=== PATIENT | female | born 1940 | race Caucasian/White ===

== ENCOUNTER → 2018-01-18 | Outpatient (CLI) | payer MEDICARE ==
--- NOTE | 2018-01-18 14:24 | CT ---
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 Automated Exposure Control for Dose Reduction was Utilized. CONTRAST: CTA scan of the thorax is performed without and with IV Contrast, patient injected with 100 ml mL of Omnipaque 350, pulmonary embolism protocol. MIP Images are created on CT scanner and reviewed. FINDINGS: LUNGS: The lungs are grossly clear, there is no concerning parenchymal mass or nodule identified. T here is no pleural effusion or pneumothorax seen. The tracheobronchial tree is patent. Scattered ble bs are noted throughout the lungs in this patient with mild centrilobular emphysematous change. MEDIASTINUM: When measured on coronal images series 11 image 11 the ascending thoracic aorta demonstr ates minimal dilatation measuring 4.1 cm, similar to the prior exam where this was approximate measur e 4.2 cm. The pulmonary arteries within normal limits measuring 2.9 cm. Aortic root is also within no rmal limits measuring 3.7 cm. There is no evidence of thoracic aortic dissection. The heart is not en larged. There is a conventional branch pattern of the great vessels from the aortic arch. There is sa tisfactory enhancement of the pulmonary artery and its branches, there is no CT evidence for pulmonar y embolism. There are no greater than 1 cm hilar or mediastinal lymph nodes. No cardiomegaly or pe ricardial effusion is seen. OTHER: Subtle fat stranding is noted around the gallbladder fundus. This could be related to volume a veraging and is seen on the most inferior image only. Small fat containing diaphragmatic hernia is ag ain seen on the left. IMPRESSION: 1. Stability of the mildly dilated ascending thoracic aortic aneurysm measuring 4.1 cm. No evidence o f descending thoracic aortic aneurysm or dissection. 2. Fat stranding around the gallbladder and a single image only. Correlation with serum laboratory va lues and right upper quadrant pain is recommended to determine the need for right upper quadrant ultr asound and/or HIDA scan.
== END | disposition home or self-care (01) ==
LOC: RADCTMAIN 13:08
PROVIDERS: ATTEND Internal Medicine
DX: I71.2 Thoracic aortic aneurysm, without rupture (principal)
CPT/HCPCS: 71275; Q9967

== ENCOUNTER 2018-02-22 12:07 | Emergency (ER) | payer MEDICARE ==
[2018-02-22] MEDS ORDERED: RX INFO: IV CONTRAST WAS GIVEN 1 EACH MISC MISCELLANE PRN (12:21)
--- NOTE | 2018-02-22 12:40 | ED ---
Chest Pain HPI - General Chief Complaint: Chest Pain Stated Complaint: CHEST PAIN Time Seen by Provider: 02/22/18 12:12 Source: patient, RN notes reviewed Mode of arrival: wheelchair Limitations: no limitations - History of Present Illness Initial Comments: This is a 77-year-old female who was sent from her physician's office after she presented with complaints of chest pain it starts anteriorly and radiates to her back. She states this started yesterday she states she's been coughing a lot with clear phlegm no fevers chills or sweats she states the pain was stabbing in nature 04/08 severity pain in the back is increased with deep breathing. 2. He did have a CAT scan on January 21 of this year. No other symptoms reported at this time. Concern is for aortic pathology. MD Complaint: chest pain - Related Data Home Medications Medication Instructions Recorded Confirmed Lisinopril [Prinivil] 5 mg PO DAILY 10/05/15 02/22/18 Apixaban [Eliquis] 2.5 mg PO BID 07/15/16 02/22/18 ALPRAZolam [Xanax] 0.25 mg PO HS PRN 02/22/18 02/22/18 Atorvastatin [Lipitor] 10 mg PO DAILY 02/22/18 02/22/18 Lisinopril [Zestril] 5 mg PO DAILY 02/22/18 02/22/18 Metoprolol Succinate (ER) [Toprol 12.5 mg PO DAILY 02/22/18 02/22/18 Xl] Omeprazole [PriLOSEC] 20 mg PO DAILY 02/22/18 02/22/18 Previous Rx's Medication Instructions Recorded traMADol HCL [Ultram] 50 mg PO Q6HR PRN #12 tab 02/22/18 Allergies Allergy/AdvReac Type Severity Reaction Status Date / Time Sulfa (Sulfonamide Allergy Unknown Verified 02/22/18 12:28 Antibiotics) Review of Systems ROS Statement: Those systems with pertinent positive or pertinent negative responses have been documented in the HPI. ROS Other: All systems not noted in ROS Statement are negative. EKG Findings - EKG Results: EKG: interpreted by ERMD (Sinus bradycardia rate of 53. Interval 170 QRS duration 82 QT since QTC 424/397 evidence a left exodeviation nonspecific T- wave configuration.) Past Medical History Past Medical History: Hypertension, Mitral Valve Prolapse (MVP) History of Any Multi-Drug Resistant Organisms: None Reported Past Surgical History: No Surgical Hx Reported Past Psychological History: No Psychological Hx Reported Smoking Status: Former smoker Past Alcohol Use History: None Reported Past Drug Use History: None Reported General Exam - General Exam Comments Initial Comments: This is a well-developed well-nourished awake alert oriented 3 female Limitations: no limitations General appearance: alert, in no apparent distress Head exam: Present: atraumatic, normocephalic, normal inspection Eye exam: Present: normal appearance, PERRL, EOMI. Absent: scleral icterus, conjunctival injection, periorbital swelling ENT exam: Present: normal exam, mucous membranes moist Neck exam: Present: normal inspection. Absent: tenderness, meningismus, lymphadenopathy Respiratory exam: Present: normal lung sounds bilaterally. Absent: respiratory distress, wheezes, rales, rhonchi, stridor Cardiovascular Exam: Present: regular rate, normal rhythm, normal heart sounds. Absent: systolic murmur, diastolic murmur, rubs, gallop, clicks GI/Abdominal exam: Present: soft, normal bowel sounds. Absent: distended, tenderness, guarding, rebound, rigid Extremities exam: Present: normal inspection, full ROM, normal capillary refill. Absent: tenderness, pedal edema, joint swelling, calf tenderness Back exam: Present: normal inspection, full ROM, other (Mild kyphosis is noted.) . Absent: tenderness, CVA tenderness (R), CVA tenderness (L) Neurological exam: Present: alert, oriented X3, CN II-XII intact Psychiatric exam: Present: normal affect, normal mood Skin exam: Present: warm, dry, intact, normal color. Absent: rash Course Vital Signs 02/22/18 02/22/18 12:09 14:10 Temperature 98.0 F 98.2 F Pulse Rate 55 L 54 L Respiratory 20 20 Rate Blood Pressure 163/89 166/99 O2 Sat by Pulse 98 100 Oximetry Chest Pain MDM - MDM I did review the imaging and the CAT scan with angiography shows a 2 mm increase in size the aorta. Her previous one I did discuss the findings with Dr. Correa patient be discharged I will write a prescription for tramadol for her she is follow-up with Dr. Correa and return when necessary Disposition Clinical Impression: Atypical chest pain Disposition: HOME SELF-CARE Condition: Good Instructions: Chest Wall Pain (ED) Prescriptions: traMADol HCL [Ultram] 50 mg PO Q6HR PRN #12 tab PRN Reason: Pain Is patient prescribed a controlled substance at d/c from ED?: Yes If prescribed controlled substance>3 days was MAPS reviewed?: No When asked, does pt state using other controlled substances?: Yes Referrals: Abelardo Correa MD [Primary Care Provider] - 1-2 days
[2018-02-22 13:08] LABS: Basophils % (A) 1 %; Eosinophils # (A) 0.1 k/uL (0-0.7); Eosinophils % (A) 2 %; HCT 39.6 % (34.0-46.0); HGB 13.6 gm/dL (11.4-16.0); Lymphocytes % (A) 21 %; MCHC 34.3 g/dL (31.0-37.0); MCV 93.5 fL (80.0-100.0); Mean Platelet Volume 6.4; Monocytes # (A) 0.3 k/uL (0-1.0); Monocytes % (A) 7 %; Neutrophils # (A) 3.2 k/uL (1.3-7.7); Neutrophils % (A) 66 %; Platelet Count 264 k/uL (150-450); RBC 4.24 m/uL (3.80-5.40); RDW 12.8 % (11.5-15.5); WBC 4.8 k/uL (3.8-10.6)
--- NOTE | 2018-02-22 13:18 | XR ---
EXAMINATION TYPE: XR chest 2V DATE OF EXAM: 02/22/2018 COMPARISON: 10/05/2015 INDICATION: Cough, chest pain TECHNIQUE: Frontal and lateral views of the chest are obtained. FINDINGS: The heart size is normal. The pulmonary vasculature is normal. The lungs are clear. Mild hyperinflation may be present. Axillary adenopathy is not excluded. Clinic al correlation is recommended IMPRESSION: 1. No acute pulmonary process. 2. Axillary adenopathy is not excluded, more so on the left. Clinical correlation recommended.
[2018-02-22 13:23] LABS: Partial Thromboplastin Time 25.2 sec (22.0-30.0); Prothrombin Time 10.1 sec (9.0-12.0)
[2018-02-22 13:26] LABS: Albumin 4.5 g/dL (3.5-5.0); Calcium 9.3 mg/dL (8.4-10.2); Magnesium 2.1 mg/dL (1.6-2.3); Potassium 4.4 mmol/L (3.5-5.1); Total Protein 7.2 g/dL (6.3-8.2)
[2018-02-22 13:34] LABS: Creatine Kinase 63 U/L (30-135)
[2018-02-22 13:45] LABS: Creatine Kinase MB <0.2 ng/mL (0.0-2.4); Troponin I <0.012 ng/mL (0.000-0.034)
--- NOTE | 2018-02-22 14:37 | CT ---
EXAMINATION TYPE: CT angio thoracic/abd aorta DATE OF EXAM: 02/22/2018 COMPARISON: 07/15/2016 HISTORY: Back pain CT DLP: 726.2 mGycm, Automated exposure control for dose reduction was used. CONTRAST: Performed injected with 100 mL of Isovue 370. TECHNIQUE: Axial images were obtained at 5 mm thick sections. Reconstructed images are reviewed on t [email or web address] computer in the coronal plane. FINDINGS: Thyroid is enlarged heterogenous. No suspicious lung nodules or focal infiltrates are present. No enlarged mediastinal or hilar adenopathy is evident. The ascending aorta diameter at the level o f the main pulmonary artery is 4.2 cm. The main pulmonary artery diameter at the bifurcation is 3.0 cm. 3-D [id number] reconstructed images were obtained separately on the vitreous computer. Aorta tape rs normally throughout its visualized course. No dissection is evident. No aneurysm is evident. Commo n iliac arteries dividing into internal and external iliac arteries. The external iliac arteries exte nding the common femoral arteries which bifurcate normally. The abdomen is visualized appears unremarkable. Fecal debris is within the colon. There is limitation on loops of bowel lacking oral contrast. Uterus and ovaries are not identified. The appendix is not identified. IMPRESSIONS: 1. Ascending thoracic aortic aneurysm of 4.2 cm. This is slightly larger than the 4 cm from 2016. 2. Enlarged heterogenous thyroid follow-up is recommended.
[2018-02-22 15:18] VITALS: BP 162/69; PULSE 47; RESP 18; TEMP 98.4
== END 2018-02-22 15:30 | disposition home or self-care (01) ==
LOC: EC 12:07
DX: R07.89 Other chest pain (principal); M40.209 Unspecified kyphosis, site unspecified; R05 Cough; Z87.891 Personal history of nicotine dependence; Z88.2 Allergy status to sulfonamides; I10 Essential (primary) hypertension; Z79.01 Long term (current) use of anticoagulants; Z79.899 Other long term (current) drug therapy
CPT/HCPCS: 99285; 36415; 93005; 80053; 82550; 82553; 83690; 83735; 84484; 85025; 85610; 85730; 71046; 75635; 71275; Q9967; 96372; 99284

== ENCOUNTER → 2019-01-10 | Outpatient (CLI) | payer MEDICARE ==
[2019-01-10 15:12] LABS: HCT 39.6 % (34.0-46.0); HGB 12.3 gm/dL (11.4-16.0); MCH 30.2 pg (25.0-35.0); MCV 97.6 fL (80.0-100.0); Mean Platelet Volume 7.1; Platelet Count 255 k/uL (150-450); RBC 4.06 m/uL (3.80-5.40); WBC 5.7 k/uL (3.8-10.6)
[2019-01-10 15:25] LABS: Potassium 4.7 mmol/L (3.5-5.1)
== END ==
LOC: LABWHC1 14:28
PROVIDERS: ATTEND Internal Medicine Interventional Cardiology
DX: Z01.812 Encounter for preprocedural laboratory examination (principal); R07.9 Chest pain, unspecified
CPT/HCPCS: 80051; 82565; 84520; 85027

== ENCOUNTER → 2019-02-09 | Outpatient (CLI) | payer MEDICARE ==
[2019-02-09 09:37] LABS: HCT 40.6 % (34.0-46.0); HGB 12.6 gm/dL (11.4-16.0); MCH 30.5 pg (25.0-35.0); MCHC 31.1 g/dL (31.0-37.0); MCV 97.9 fL (80.0-100.0); Mean Platelet Volume 6.6; Platelet Count 315 k/uL (150-450); RBC 4.15 m/uL (3.80-5.40); RDW 12.7 % (11.5-15.5); WBC 5.2 k/uL (3.8-10.6)
[2019-02-09 09:50] LABS: Potassium 4.8 mmol/L (3.5-5.1)
== END | disposition home or self-care (01) ==
LOC: LABPAT 08:52
PROVIDERS: ATTEND Internal Medicine Interventional Cardiology
DX: Z01.812 Encounter for preprocedural laboratory examination (principal); R07.9 Chest pain, unspecified; I10 Essential (primary) hypertension; E78.1 Pure hyperglyceridemia
CPT/HCPCS: 36415; 80051; 82565; 84520; 85027

== ENCOUNTER 2019-02-25 10:47 | Day surgery (SDC) | payer MEDICARE ==
[~2019-02-25 10:47] MED LIST: ALPRAZolam 0.25 MG TAB PO PRN; ALPRAZolam 0.5 MG TAB PO PRN; ASPIRIN 325 MG TAB PO STA; ATORVASTATIN 80 MG TAB PO STA; NITROGLYCERIN SL TABS 0.4 MG TAB SUBLINGUAL PRN; SODIUM CHLORIDE 0.9% 1,000 ML in EMPTY BAG 1 BAG IV ONE
[2019-02-25 11:13] VITALS: RESP 18
[2019-02-25] MEDS ORDERED: LIDOCAINE 1% INJ 10MG/ML (20 ML MDV) ONE (12:19)
[2019-02-25] MEDS ORDERED: MIDAZOLAM (PF) 2 MG/2 ML VIAL IVP ONE (12:27)
[2019-02-25] MEDS ORDERED: LIDOCAINE 1% INJ 10MG/ML (20 ML MDV) SQ ONE (12:29)
[2019-02-25] MEDS ORDERED: IOPAMIDOL-370 125ML BTL INJ ONE (12:41)
[2019-02-25] MEDS ORDERED: IOPAMIDOL-370 50ML BTL INJ ONE (12:41)
[2019-02-25] MEDS ORDERED: RX INFO: IV CONTRAST WAS GIVEN 1 EACH MISC MISCELLANE PRN (12:46)
[2019-02-25] MEDS ORDERED: SODIUM CHLORIDE 0.9% 1,000 ML IV SCH (13:00)
--- NOTE | 2019-02-25 13:05 | CC ---
CARDIAC CATHETERIZATION REPORT DATE OF SERVICE: 02/25/2019 PERFORMING PHYSICIAN: Chris Brown MD, Stitcher Feeder. PROCEDURE PERFORMED: 1. Selective right and left coronary angiogram. 2. An aortic root angiogram. 3. Left heart catheterization. INDICATION: This is a pleasant 79-year-old female patient with past medical history significant for paroxysmal atrial fibrillation as well as aortic insufficiency, who continues to have chest discomfort. Because of that, a heart catheterization was advised. APPROACH: Right common femoral artery. COMPLICATION: None. LEVEL OF SEDATION: Moderate with sedation length of 17 minutes. PROCEDURE DESCRIPTION: After obtaining an informed consent, the patient was brought to the cardiac laborer landscape. The right common femoral artery was cannulated using micropuncture technique and a micropuncture wire passed easily. then I placed a 6-Lao sheath in the right common femoral artery. After that, I did selective right and left coronary angiogram using JR 3.5 and JL3.5 catheters. Left heart catheterization was performed using 6-Lao pigtail catheter. The aortic root angiogram was performed also using the 6-Lao pigtail catheter. The procedure was completed without any complication. SELECTIVE CORONARY ANGIOGRAM: 1. The right coronary artery is a large caliber vessel and it is a dominant vessel. It appears to be angiographically normal. 2. The left main is angiographically normal, it bifurcates into the circumflex and left anterior descending artery. 3. The left circumflex is a large caliber vessel. It is a nondominant vessel and appeared to be angiographically normal. 4. The LAD, the LAD is angiographically normal. In the midportion it gives rise into a large diagonal branch which seems to be normal. HEMODYNAMICS: The left ventricular end diastolic was 20 mmHg without significant gradient across the aortic valve. AORTIC ROOT ANGIOGRAM: The aortic root angiogram was performed in the MOZAMBICAN projection and using a power injection. The aortic root appeared to be mildly dilated with evidence of 1 to 2+ AI. CONCLUSION: 1. Normal coronary angiogram. 2. Mildly dilated aortic root. 3. One to 2+ AI. POSTPROCEDURE MANAGEMENT: Medical treatment and follow up with the patient. MMODL / IJN: [id number] /
--- NOTE | 2019-02-25 13:05 | LTR ---
DATE OF SERVICE: 02/25/2019 RE: Annetta Riddle Dear Dr. Correa; Ms. Annetta Riddle underwent today a heart catheterization and that revealed normal coronaries. I want to thank you for allowing us to participate in her care and please do not hesitate to call for questions or concerns. Sincerely, MD SYED Salcido / MALOU: [phone] /
[2019-02-25] MEDS ORDERED: ACETAMINOPHEN TAB 325 MG TAB ONE (16:26)
[2019-02-25] MEDS ORDERED: ACETAMINOPHEN TAB 325 MG TAB PO PRN (16:28)
[2019-02-25] MEDS: LISINOPRIL 2.5 MG TAB PO STA ×2 (16:51→16:54)
[2019-02-25 18:14] VITALS: BMI 21.2
[2019-02-25 19:52] VITALS: BP 122/65; PULSE 51; TEMP 98.5
== END 2019-02-25 20:35 | disposition home or self-care (01) ==
LOC: CATHCVL 10:47 → 3SCARD 16:01 → CATHCVL 20:35
PROVIDERS: ATTEND Internal Medicine Interventional Cardiology
DX: I48.0 Paroxysmal atrial fibrillation (principal); R07.89 Other chest pain; I10 Essential (primary) hypertension; I35.1 Nonrheumatic aortic (valve) insufficiency; E78.00 Pure hypercholesterolemia, unspecified; Z72.0 Tobacco use; Z79.01 Long term (current) use of anticoagulants; Z79.899 Other long term (current) drug therapy
CPT/HCPCS: 93458; 93567; C1894; C1769; J2001; Q9967 ×2; J2250

== ENCOUNTER → 2021-04-26 | Outpatient (CLI) | payer MEDICARE ==
--- NOTE | 2021-04-26 17:23 | XR ---
EXAMINATION TYPE: XR ankle complete 3 views LT, XR foot complete 3 views LT DATE OF EXAM: 04/26/2021 COMPARISON: NONE HISTORY: 81-year-old female M2 5.572, pain and swelling. FINDINGS: Ankle: Prominent circumferential soft tissue swelling at the ankle. Ankle mortise is congruent with preserva tion of the distal tibiofibular overlap. Talar dome is intact. No acute fracture, subluxation, or dis location seen. Subtalar joint is aligned. Mild degenerative spurring anterior tibiotalar joint. Foot: Mild degenerative change first MTP joint. Generalized dorsal soft tissue swelling. Os intermetatarsal noted along the dorsal midfoot. No acute fracture, subluxation, dislocation seen. IMPRESSION: Ankle and foot with prominent generalized soft tissue swelling. Mild degenerative spurring at the tib iotalar joint and also mild first MTP joint OA. No acute osseous abnormality seen.
== END | disposition home or self-care (01) ==
LOC: RADXRMAIN 15:06
PROVIDERS: ATTEND Family Medicine
DX: M19.072 Primary osteoarthritis, left ankle and foot (principal)

== ENCOUNTER 2021-11-18 17:16 | Inpatient (IN) | payer MEDICARE ==
[2021-11-18] MEDS ORDERED: DILTIAZEM DRIP BOLUS FROM BAG 1 MG SOLN IV ONE ×2 (17:42→19:02)
--- NOTE | 2021-11-18 17:42 | ED ---
General Adult HPI - General Chief complaint: Arrhythmia/Palpitations Stated complaint: High HR Time Seen by Provider: 11/18/21 17:22 Source: patient, RN/ (Call received from Dr. Gill), RN notes reviewed Mode of arrival: ambulatory Limitations: no limitations - History of Present Illness Initial comments: Patient is a pleasant 81-year-old female presenting to the emergency department for tachycardia. Patient does have a history of atrial fibrillation and is on oral Eliquis for this. Patient was at her doctor's office for routine visit and found heart rate up in the 130s. Patient states just recently she felt some palpitations otherwise has not been. No chest pain. No dyspnea. - Related Data Home Medications Medication Instructions Recorded Confirmed ALPRAZolam [Xanax] 0.25 mg PO HS PRN 02/22/18 02/22/19 Atorvastatin [Lipitor] 10 mg PO DAILY 02/22/18 02/25/19 Metoprolol Succinate (ER) [Toprol 12.5 mg PO DAILY 02/22/18 02/25/19 XL] ALPRAZolam [Xanax] 0.25 mg PO HS PRN 02/22/19 02/25/19 Biotin 10,000 mcg PO DAILY 02/22/19 02/25/19 Cetirizine HCl [Zyrtec] 10 mg PO DAILY 02/22/19 02/25/19 Focus Factor Supplement 1 tab PO DAILY 02/22/19 02/25/19 Neuro-Ps Supplement 1 tab PO DAILY 02/22/19 02/25/19 Vitamin B Complex 1 each PO DAILY 02/22/19 02/25/19 lisinopriL [Zestril] 2.5 mg PO DAILY 02/22/19 02/25/19 Allergies Allergy/AdvReac Type Severity Reaction Status Date / Time Sulfa (Sulfonamide Allergy Unknown Verified 11/18/21 17:30 Antibiotics) Review of Systems ROS Statement: Those systems with pertinent positive or pertinent negative responses have been documented in the HPI. ROS Other: All systems not noted in ROS Statement are negative. Constitutional: Denies: fever Eyes: Denies: eye pain ENT: Denies: ear pain Respiratory: Denies: cough, dyspnea Cardiovascular: Reports: palpitations. Denies: chest pain Endocrine: Denies: fatigue Gastrointestinal: Denies: abdominal pain Genitourinary: Denies: dysuria Musculoskeletal: Denies: back pain Skin: Denies: rash Neurological: Denies: weakness Past Medical History Past Medical History: Hypertension, Mitral Valve Prolapse (MVP) History of Any Multi-Drug Resistant Organisms: None Reported Past Surgical History: No Surgical Hx Reported Past Psychological History: No Psychological Hx Reported Smoking Status: Never smoker Past Alcohol Use History: None Reported Past Drug Use History: None Reported General Exam Limitations: no limitations General appearance: alert, in no apparent distress Head exam: Present: normocephalic Eye exam: Present: normal appearance Neck exam: Present: normal inspection Respiratory exam: Present: normal lung sounds bilaterally Cardiovascular Exam: Present: tachycardia Expanded Peripheral pulses: 2+: Radial (R), Radial (L), Posterior Tibialis (R), Posterior Tibialis (L) GI/Abdominal exam: Present: soft. Absent: tenderness Extremities exam: Present: normal inspection. Absent: pedal edema, calf tenderness Neurological exam: Present: alert Psychiatric exam: Present: normal affect, normal mood Skin exam: Present: normal color Course Vital Signs 11/18/21 11/18/21 11/18/21 17:28 17:52 17:55 Temperature 98.1 F Pulse Rate 146 H 146 H Pulse Rate [ 148 H Ibm Bpm Architect ] Respiratory 20 18 Rate Blood Pressure 173/108 144/109 O2 Sat by Pulse 98 97 Oximetry 11/18/21 17:57 Temperature Pulse Rate 144 H Pulse Rate [ Ibm Bpm Architect ] Respiratory 18 Rate Blood Pressure 146/96 O2 Sat by Pulse 96 Oximetry EKG Findings - EKG Comments: EKG Findings:: A. fib with RVR, rate 138. QRS 76. QT 216. QTc 470. Normal axis. Poor R-wave progression. Nonspecific ST-T. Medical Decision Making - Medical Decision Making Patient reevaluated with heart rate remaining mostly in the upper 130s to 140. Additional Cardizem will be provided. Patient and family updated. Case was discussed with Dr. Mcnair, who will admit covering for Dr. Candelario. - Lab Data Result diagrams: 11/18/21 17:54 11/18/21 17:54 Lab Results 11/18/21 11/18/21 11/18/21 Range/Units 17:54 17:54 17:54 WBC 6.4 (3.8-10.6) k/uL RBC 4.40 (3.80-5.40) m/uL Hgb 14.3 (11.4-16.0) gm/dL Hct 43.8 (34.0-46.0) % MCV 99.4 (80.0-100.0) fL MCH 32.4 (25.0-35.0) pg MCHC 32.6 (31.0-37.0) g/dL RDW 13.2 (11.5-15.5) % Plt Count 262 (150-450) k/uL MPV 7.4 Neutrophils % 62 % Lymphocytes % 27 % Monocytes % 6 % Eosinophils % 2 % Basophils % 0 % Neutrophils # 3.9 (1.3-7.7) k/uL Lymphocytes # 1.7 (1.0-4.8) k/uL Monocytes # 0.4 (0-1.0) k/uL Eosinophils # 0.2 (0-0.7) k/uL Basophils # 0.0 (0-0.2) k/uL PT 10.2 (9.0-12.0) sec INR 0.9 (<1.2) APTT 23.1 (22.0-30.0) sec Sodium 141 (137-145) mmol/L Potassium 4.2 (3.5-5.1) mmol/L Chloride 105 (98-107) mmol/L Carbon Dioxide 24 (22-30) mmol/L Anion Gap 12 mmol/L BUN 22 H (7-17) mg/dL Creatinine 1.07 H (0.52-1.04) mg/dL Est GFR (CKD-EPI)AfAm 56 (>60 ml/min/1.73 sqM) Est GFR (CKD-EPI)NonAf 49 (>60 ml/min/1.73 sqM) Glucose 108 H (74-99) mg/dL Calcium 9.7 (8.4-10.2) mg/dL Magnesium 2.1 (1.6-2.3) mg/dL Total Bilirubin 1.5 H (0.2-1.3) mg/dL AST 29 (14-36) U/L ALT 16 (4-34) U/L Alkaline Phosphatase 84 (38-126) U/L Troponin I (0.000-0.034) ng/mL Total Protein 8.2 (6.3-8.2) g/dL Albumin 4.8 (3.5-5.0) g/dL TSH 4.690 H (0.465-4.680) mIU/L Free T4 1.22 (0.78-2.19) ng/dL Free T3 pg/mL 3.9 (2.8-5.3) pg/ml 11/18/21 Range/Units 17:54 WBC (3.8-10.6) k/uL RBC (3.80-5.40) m/uL Hgb (11.4-16.0) gm/dL Hct (34.0-46.0) % MCV (80.0-100.0) fL MCH (25.0-35.0) pg MCHC (31.0-37.0) g/dL RDW (11.5-15.5) % Plt Count (150-450) k/uL MPV Neutrophils % % Lymphocytes % % Monocytes % % Eosinophils % % Basophils % % Neutrophils # (1.3-7.7) k/uL Lymphocytes # (1.0-4.8) k/uL Monocytes # (0-1.0) k/uL Eosinophils # (0-0.7) k/uL Basophils # (0-0.2) k/uL PT (9.0-12.0) sec INR (<1.2) APTT (22.0-30.0) sec Sodium (137-145) mmol/L Potassium (3.5-5.1) mmol/L Chloride (98-107) mmol/L Carbon Dioxide (22-30) mmol/L Anion Gap mmol/L BUN (7-17) mg/dL Creatinine (0.52-1.04) mg/dL Est GFR (CKD-EPI)AfAm (>60 ml/min/1.73 sqM) Est GFR (CKD-EPI)NonAf (>60 ml/min/1.73 sqM) Glucose (74-99) mg/dL Calcium (8.4-10.2) mg/dL Magnesium (1.6-2.3) mg/dL Total Bilirubin (0.2-1.3) mg/dL AST (14-36) U/L ALT (4-34) U/L Alkaline Phosphatase (38-126) U/L Troponin I <0.012 (0.000-0.034) ng/mL Total Protein (6.3-8.2) g/dL Albumin (3.5-5.0) g/dL TSH (0.465-4.680) mIU/L Free T4 (0.78-2.19) ng/dL Free T3 pg/mL (2.8-5.3) pg/ml Critical Care Time Critical Care Time: Yes Total Critical Care Time: 32 Disposition Clinical Impression: Atrial fibrillation with RVR Disposition: ADMITTED IP TO THIS HOSP Is patient prescribed a controlled substance at d/c from ED?: No Referrals: Floyd Doyle [Primary Care Provider] - 1-2 days Decision Time: 19:03
[2021-11-18] MEDS ORDERED: DILTIAZEM 125 MG in SODIUM CHLORIDE 0.9% 100 ML IV SCH (17:45)
[2021-11-18 18:00] LABS: Basophils % (A) 0 %; Eosinophils # (A) 0.2 k/uL (0-0.7); Eosinophils % (A) 2 %; HCT 43.8 % (34.0-46.0); HGB 14.3 gm/dL (11.4-16.0); Lymphocytes # (A) 1.7 k/uL (1.0-4.8); Lymphocytes % (A) 27 %; MCH 32.4 pg (25.0-35.0); MCHC 32.6 g/dL (31.0-37.0); MCV 99.4 fL (80.0-100.0); Mean Platelet Volume 7.4; Monocytes # (A) 0.4 k/uL (0-1.0); Monocytes % (A) 6 %; Neutrophils # (A) 3.9 k/uL (1.3-7.7); Neutrophils % (A) 62 %; Platelet Count 262 k/uL (150-450); RDW 13.2 % (11.5-15.5); WBC 6.4 k/uL (3.8-10.6)
[2021-11-18 18:09] LABS: INR 0.9 (<1.2); Partial Thromboplastin Time 23.1 sec (22.0-30.0); Prothrombin Time 10.2 sec (9.0-12.0)
[2021-11-18 18:12] LABS: Albumin 4.8 g/dL (3.5-5.0); Calcium 9.7 mg/dL (8.4-10.2); Magnesium 2.1 mg/dL (1.6-2.3); Potassium 4.2 mmol/L (3.5-5.1); Total Bilirubin 1.5 mg/dL (0.2-1.3); Total Protein 8.2 g/dL (6.3-8.2)
--- NOTE | 2021-11-18 18:19 | XR ---
EXAMINATION TYPE: XR chest 2V DATE OF EXAM: 11/18/2021 6:09 PM COMPARISON:Multiple radiographs, with the most recent on 02/22/2018 CLINICAL INDICATION:Female, 81 years old with history of dysrhythmia; TECHNIQUE: Frontal and lateral views of the chest. FINDINGS: Lungs/Pleura: There is flattening of the diaphragm with increased lucency of the lungs. No evidence o f pneumothorax, pleural effusion or focal consolidation. Pulmonary vascularity: Unremarkable. Heart/mediastinum: Cardiomediastinal silhouette is prominent in size. Musculoskeletal: No acute osseous pathology. IMPRESSION: 1. No acute cardiopulmonary disease/process. 2. COPD changes.
[2021-11-18 18:29] LABS: T4, Free (Free Thyroxine) 1.22 ng/dL (0.78-2.19)
[2021-11-18] MEDS ORDERED: NALOXONE 0.4 MG/ML 1 ML VIAL IV PRN (19:13)
--- NOTE | 2021-11-19 01:06 | P.HPIM ---
History of Present Illness H&P Date: 11/18/21 Patient is an 81-year-old female with a PMH of A. fib on Eliquis, hypertension, and hyperlipidemia who was sent in from her primary care physician's office due to A. fib with RVR. The history was supplemented by the patient's daughter at the bedside. The daughter reports that the patient has been more forgetful recently and they suspect that she may not be taking her medications as per usual. The patient was also partially confused during the interview and when asked, she reports that she does not take any medications. The patient lives by herself and up until now has been fully independent with all her ADLs. She was seen at her PMDs office earlier today for a routine evaluation where she was noted to be significantly tachycardic and was thereby sent to the ED. She denied any active complaints at the time of interview. The patient denied experiencing chest discomfort, shortness of palpitations, nausea, vomiting, abdominal pain, diarrhea, fever, chills, cough, dysuria. EKG in the emergency room revealed A. fib with RVR with initial EKG showing a rate of 131 and subsequently 138. Chest x-ray revealed findings consistent with COPD. Laboratory evaluation was reviewed. Review of systems: Pertinent positives and negatives as discussed in HPI, a complete review of systems was performed and all other systems are negative. Physical examination: General: non toxic, no distress, appears at stated age, normal weight Derm: no unusual rashes/lesions no unusual ecchymoses, warm, dry Head: atraumatic, normocephalic, symmetric Eyes: EOMI, no lid lag, anicteric sclera, pupils equal round reactive to light ENT: Nose and ears atraumatic, no thrush, no pharyngeal erythema Neck: No thyromegaly, no cervical lymphadenopathy, trachea midline, supple Mouth: no lip lesion, mucus membranes moist Cardiovascular: Irregularly irregular, no murmur, positive posterior tibial pulse bilateral, no edema, capillary refill less than 2 seconds Lungs: CTA bilateral, no rhonchi, no rales , no accessory muscle use Abdominal: soft, nontender to palpation, no guarding, no appreciable organomeg rylee, normal bowel sounds Ext: no gross muscle atrophy, muscle strength 5 out of 5 in all 4 extremities grossly, no contractures, Neuro: CN II-XI grossly intact, light touch intact all 4 extremities, finger to nose within normal limits, Psych: Alert, oriented to person, place, time, but somewhat confused with other questions Assessment/plan A. fib with RVR -Continue Cardizem infusion -Cardiology consulted -Cardiac monitoring -Continue with home Eliquis Chronic conditions: Hypertension, hyperlipidemia -Continue with home meds DVT prophylaxis -Eliquis The patient is admitted with an anticipated greater than 2 midnight stay for evaluation of Afib with RVR CODE STATUS: Full Code Discussed with: Patient Anticipated discharge date: 2-[address]: Home Past Medical History Past Medical History: Hypertension, Mitral Valve Prolapse (MVP) History of Any Multi-Drug Resistant Organisms: None Reported Past Surgical History: No Surgical Hx Reported Past Psychological History: No Psychological Hx Reported Smoking Status: Never smoker Past Alcohol Use History: None Reported Past Drug Use History: None Reported Medications and Allergies Home Medications Medication Instructions Recorded Confirmed Type Atorvastatin [Lipitor] 10 mg PO W/SUPPER 02/22/18 11/18/21 History Metoprolol Succinate (ER) [Toprol 12.5 mg PO DAILY 02/22/18 11/18/21 History XL] Apixaban [Eliquis] 2.5 mg PO BID 11/18/21 11/18/21 History Escitalopram [Lexapro] 10 mg PO DAILY 11/18/21 11/18/21 History Losartan Potassium [Cozaar] 25 mg PO BID 11/18/21 11/18/21 History Allergies Allergy/AdvReac Type Severity Reaction Status Date / Time Sulfa (Sulfonamide Allergy Unknown Verified 11/18/21 19:11 Antibiotics) Physical Exam Vitals: Vital Signs Temp Pulse Pulse Resp BP Pulse Ox 11/18/21 21:42 111 H 16 132/99 11/18/21 19:04 120 H 18 129/98 11/18/21 17:57 144 H 18 146/96 96 11/18/21 17:55 148 H 11/18/21 17:52 146 H 18 144/109 97 11/18/21 17:28 98.1 F 146 H 20 173/108 98 Intake and Output 11/18/21 11/18/21 11/18/21 06:59 14:59 22:59 Other: Weight 63.957 kg Results CBC & Chem 7: 11/18/21 17:54 11/18/21 17:54 Labs: Abnormal Lab Results - Last 24 Hours (Table) 11/18/21 Range/Units 17:54 BUN 22 H (7-17) mg/dL Creatinine 1.07 H (0.52-1.04) mg/dL Glucose 108 H (74-99) mg/dL Total Bilirubin 1.5 H (0.2-1.3) mg/dL TSH 4.690 H (0.465-4.680) mIU/L
[2021-11-19] MEDS: APIXABAN 2.5 MG TABLET PO SCH ×2 (08:02→20:43)
[2021-11-19] MEDS: METOPROLOL SUCCINATE (ER) 25 MG TAB.ER.24H PO SCH (08:02)
[2021-11-19] MEDS: ESCITALOPRAM 10 MG TAB PO SCH (08:02)
[2021-11-19] MEDS ORDERED: METOPROLOL SUCCINATE (ER) 25 MG TAB.ER.24H PO SCH (09:00)
[2021-11-19] MEDS ORDERED: LOSARTAN 25 MG TAB PO SCH ×2 (09:00)
[2021-11-19] MEDS ORDERED: DEXTROSE 5% IN WATER 100 ML with AMIODARONE 150 MG IV ONE (09:15)
[2021-11-19] MEDS ORDERED: AMIODARONE 360 MG in DEXTROSE 5% IN WATER 200 ML IV ONE ×2 (09:30)
--- NOTE | 2021-11-19 10:56 | ECHOF ---
Referral Reason:a fib MEASUREMENTS -------- HEIGHT: 165.1 cm WEIGHT: 63.0 kg BP: 120/75 RVIDd: 3.6 cm (< 3.3) IVSd: 1.5 cm (0.6 - 1.1) LVIDd: 3.9 cm (3.9 - 5.3) LVPWd: 1.4 cm (0.6 - 1.1) IVSs: 1.8 cm LVIDs: 2.9 cm LVPWs: 1.7 cm LA Diam: 3.9 cm (2.7 - 3.8) LAESV Index (A-L): 36.31 ml/m Ao Diam: 3.4 cm (2.0 - 3.7) AV Cusp: 2.6 cm (1.5 - 2.6) MV EXCURSION: 12.690 mm (> 18.000) MV EF SLOPE: 78 mm/s (70 - 150) EPSS: 0.7 cm AR PHT: 833 ms RAP: 5.00 mmHg RVSP: 37.80 mmHg FINDINGS -------- Atrial fibrillation. This was a technically good study. The left ventricular size is normal. There is moderate concentric left ventricular hypertrophy. O verall left ventricular systolic function is low-normal with, an EF between 50 - 55 %. The right ventricle is mildly enlarged. LA is moderately dilated 34-39 ml/m2 The right atrium is normal in size. Interatrial and interventricular septum intact. There is mild aortic regurgitation. Mild mitral regurgitation is present. Mild tricuspid regurgitation present. There is mild pulmonary hypertension. The right ventricular systolic pressure, as measured by Doppler, is 37.80mmHg. There is no pulmonic regurgitation present. The aortic root size is normal. Normal inferior vena cava with normal inspiratory collapse consistent with estimated right atrial pre ssure of 5 mmHg. There is no pericardial effusion. CONCLUSIONS -------- 1. The left ventricular size is normal. 2. There is moderate concentric left ventricular hypertrophy. 3. Overall left ventricular systolic function is low-normal with, an EF between 50 - 55 %. 4. The right ventricle is mildly enlarged. 5. LA is moderately dilated 34-39 ml/m2 6. There is mild aortic regurgitation. 7. Mild mitral regurgitation is present. 8. Mild tricuspid regurgitation present. 9. There is mild pulmonary hypertension. 10. The right ventricular systolic pressure, as measured by Doppler, is 37.80mmHg. 11. There is no pulmonic regurgitation present. 12. There is no pericardial effusion. CALL CENTER TEAM LEADER: Jazmyne Johnson RDCS
--- NOTE | 2021-11-19 12:08 | P.CRDCN ---
History of Present Illness History of present illness: This is an 81-year-old female with a past medical history of paroxysmal atrial fibrillation, hypertension, aortic regurgitation. She follows in the office with Dr. Brown. We are constant for atrial fibrillation with rapid ventricular response.Patient is confused on exam, she unsure how she got to the hospital, she is unsure of her medical history or medications. Patient was apparently sent to the hospital from her PCPs office, she was there for a routine follow up. She was noted to be significantly tachycardic. EKG revealed, atrial fibrillation which corresponds, patient was sent emergency department for further evaluation. Patient was given a 5mg IV cardizem bolus, and IV Cardizem drip. Patient seen and examined at bedside, no acute distress. She has no complaints. She denies any chest pain, palpitations, lightheadedness, dizziness, nausea, vomiting, shortness of breath. She is alert and oriented to person, she is unsure of the month, stated it was 2019 and stated she was at [facility]. DIAGNOSTICS EKG reveals atrial fibrillation with rapid ventricular response Telemetry tracings indicate atrial fibrillation heart rate in the [id number] Chest xray no acute cardiopulmonary process Laboratory reviewed, CBC unremarkable, sodium 141, potassium 4.2, BUN 22, serum creatinine 1.0, troponin negative 1, TSH elevated, free T4 and free T3 within normal limits, COVID-19 negative Current home medications include metoprolol succinate 12.5 mg daily, losartan 25 mg twice a day, Eliquis 2.5 mg twice a day, atorvastatin 10 mg daily, Lexapro 10 mg daily Cardiac catheterization in 2019 revealed normal coronary arteries Most recent echocardiogram 05/2019 revealed normal ejection fraction, moderate aortic regurgitation, moderate mitral regurgitation, LVH, mild to moderate tricuspid regurgitation Stress test in 10/2018 was normal in the office REVIEW OF SYSTEMS At the time of my exam: CONSTITUTIONAL: Denies fever or chills. CARDIOVASCULAR: Denies chest pain, shortness of breath, orthopnea, PND or palpitations. RESPIRATORY: Denies cough. GASTROINTESTINAL: Denies abdominal pain, diarrhea, constipation, nausea or vomiting. MUSCULOSKELETAL: Denies myalgias. NEUROLOGIC: Denies numbness, tingling, headacbe or weakness. ENDOCRINE: Denies fatigue, weight change, polydipsia or polyurina. GENITOURINARY: Denies burning, hematuria or urgency with micturation. HEMATOLOGIC: Denies history of anemia or bleeding. PHYSICAL EXAMINATION Blood pressure 111/77, heart rate 101, afebrile, saturations 90% on room air CONSTITUTIONAL: No apparent distress. HEENT: Head is normocephalic. Pupils are equal, round. Sclerae anicteric. Mucous membranes of the mouth are moist. No JVD. No carotid bruit. CHEST EXAMINATION: Lungs are clear to auscultation. No chest wall tenderness is noted on palpation or with deep breathing. HEART EXAMINATION: Irregular rate and rhythm. S1, S2 heard. Systolic ejection murmur at apex ABDOMEN: Soft, nontender. Positive bowel sounds. EXTREMITIES: 2+ peripheral pulses, no lower extremity edema and no calf tenderness. NEUROLOGIC EXAMINATION: Patient is awake, alert and oriented to person ASSESSMENT Paroxysmal atrial fibrillation with rapid ventricular response on Eliquis History of hypertension Nonrheumatic aortic valve insufficiency PLAN We will stop IV Cardizem. Start IV amiodarone bolus and drip, will monitor on cardiac telemetry if patient converts to sinus mechanism Continue metoprolol succinate increased to 25mg daily Obtain 2D echocardiogram Continue anticoagulation with Eliquis Further recommendations based on clinical course Nurse Practitioner note has been reviewed, I agree with a documented findings and plan of care. Patient was seen and examined. Past Medical History Past Medical History: Hypertension, Mitral Valve Prolapse (MVP) History of Any Multi-Drug Resistant Organisms: None Reported Past Surgical History: No Surgical Hx Reported Past Psychological History: No Psychological Hx Reported Smoking Status: Never smoker Past Alcohol Use History: None Reported Past Drug Use History: None Reported Medications and Allergies Home Medications Medication Instructions Recorded Confirmed Type Atorvastatin [Lipitor] 10 mg PO W/SUPPER 02/22/18 11/18/21 History Metoprolol Succinate (ER) [Toprol 12.5 mg PO DAILY 02/22/18 11/18/21 History XL] Apixaban [Eliquis] 2.5 mg PO BID 11/18/21 11/18/21 History Escitalopram [Lexapro] 10 mg PO DAILY 11/18/21 11/18/21 History Losartan Potassium [Cozaar] 25 mg PO BID 11/18/21 11/18/21 History Allergies Allergy/AdvReac Type Severity Reaction Status Date / Time Sulfa (Sulfonamide Allergy Unknown Verified 11/18/21 19:11 Antibiotics) Physical Exam Vitals: Vital Signs Temp Pulse Pulse Resp BP BP Pulse Ox 11/19/21 04:00 123 H 18 120/75 100 11/18/21 22:15 97.7 F 115 H 18 158/86 98 11/18/21 21:59 132 H 18 125/81 96 11/18/21 21:42 111 H 16 132/99 11/18/21 20:44 97.7 F 115 H 18 158/86 96 11/18/21 19:04 120 H 18 129/98 11/18/21 17:57 144 H 18 146/96 96 11/18/21 17:55 148 H 11/18/21 17:52 146 H 18 144/109 97 11/18/21 17:28 98.1 F 146 H 20 173/108 98 Intake and Output 11/18/21 11/19/21 11/19/21 22:59 06:59 14:59 Intake Total 485 485 Balance 485 485 Intake: Intake, IV Titration 485 Amount Diltiazem 125 mg In 485 Sodium Chloride 0.9% 100 ml @ 5 MG/HR 5 mls/hr IV .Q24H [facility] Rx#:[id number] Oral 485 Other: Voiding Method Toilet # Voids 1 Weight 63.957 kg 63.5 kg Results 11/18/21 17:54 11/18/21 17:54 Cardiac Enzymes 11/18/21 11/18/21 Range/Units 17:54 17:54 AST 29 (14-36) U/L Troponin I <0.012 (0.000-0.034) ng/mL Coagulation 11/18/21 Range/Units 17:54 PT 10.2 (9.0-12.0) sec APTT 23.1 (22.0-30.0) sec CBC 11/18/21 Range/Units 17:54 WBC 6.4 (3.8-10.6) k/uL RBC 4.40 (3.80-5.40) m/uL Hgb 14.3 (11.4-16.0) gm/dL Hct 43.8 (34.0-46.0) % Plt Count 262 (150-450) k/uL Comprehensive Metabolic Panel 11/18/21 Range/Units 17:54 Sodium 141 (137-145) mmol/L Potassium 4.2 (3.5-5.1) mmol/L Chloride 105 (98-107) mmol/L Carbon Dioxide 24 (22-30) mmol/L BUN 22 H (7-17) mg/dL Creatinine 1.07 H (0.52-1.04) mg/dL Glucose 108 H (74-99) mg/dL Calcium 9.7 (8.4-10.2) mg/dL AST 29 (14-36) U/L ALT 16 (4-34) U/L Alkaline Phosphatase 84 (38-126) U/L Total Protein 8.2 (6.3-8.2) g/dL Albumin 4.8 (3.5-5.0) g/dL Current Medications Generic Name Dose Route Start Last Admin Trade Name Freq PRN Reason Stop Dose Admin Apixaban 2.5 mg 11/19/21 09:00 11/19/21 08:02 Apixaban 2.5 Mg Tablet PO 2.5 mg BID [facility] Administration Protocol Atorvastatin Calcium 10 mg 11/19/21 17:30 Atorvastatin 10 Mg Tab PO W/SUPPER [facility] Escitalopram Oxalate 10 mg 11/19/21 09:00 11/19/21 08:02 Escitalopram 10 Mg Tab PO 10 mg DAILY [facility] Administration Diltiazem HCl 125 mg/ Sodium 125 mls @ 5 mls/hr 11/18/21 17:45 11/18/21 17:54 Chloride IV 5 mg/hr .Q24H [facility] 5 mls/hr Administration 5 MG/HR Losartan Potassium 25 mg 11/19/21 09:00 11/19/21 08:02 Losartan 25 Mg Tab PO 25 mg BID [facility] Administration Metoprolol Succinate 25 mg 11/19/21 08:00 11/19/21 08:02 Metoprolol Succinate (Er) 25 Mg Tab.Er.24h PO 25 mg DAILY [facility] Administration Naloxone HCl 0.2 mg 11/18/21 19:13 Naloxone 0.4 Mg/Ml 1 Ml Vial IV Q2M PRN Opioid Reversal Intake and Output 11/18/21 11/19/21 11/19/21 22:59 06:59 14:59 Intake Total 485 485 Balance 485 485 Intake: Intake, IV Titration 485 Amount Diltiazem 125 mg In 485 Sodium Chloride 0.9% 100 ml @ 5 MG/HR 5 mls/hr IV .Q24H [facility] Rx#:[id number] Oral 485 Other: Voiding Method Toilet # Voids 1 Weight 63.957 kg 63.5 kg 11/18/21 17:54 11/18/21 17:54
[2021-11-19] MEDS: ATORVASTATIN 10 MG TAB PO SCH (15:35)
[2021-11-19] MEDS: AMIODARONE 450 MG in DEXTROSE 5% IN WATER 250 ML IV SCH ×2 (16:00)
--- NOTE | 2021-11-19 17:01 | P.PN ---
<Juan C Finley - Last Filed: 11/19/21 16:54> Subjective Progress Note Date: 11/19/21 Hospital course: Patient is an 81-year-old female with a PMH of A. fib on Eliquis, hypertension, and hyperlipidemia who was sent in from her primary care physician's office due to A. fib with RVR. The history was supplemented by the patient's daughter at the bedside. The daughter reports that the patient has been more forgetful recently and they suspect that she may not be taking her medications as per usual. The patient was also partially confused during the interview and when asked, she reports that she does not take any medications. The patient lives by herself and up until now has been fully independent with all her ADLs. She was seen at her PMDs office earlier today for a routine evaluation where she was noted to be significantly tachycardic and was thereby sent to the ED. She denied any active complaints at the time of admission. EKG in the emergency room revealed A. fib with RVR with initial EKG showing a rate of 131 and subsequently 138. Chest x-ray revealed findings consistent with COPD. Laboratory evaluation was unremarkable with the exception of elevated bilirubin of 1.5 and TSH of 4.690 with free T4 of 1.22 and free T3 of 3.9. Covid PCR negative. Physical examination: Patient seen and fully evaluated at the bedside this morning. Cardizem was discontinued and patient being started on amiodarone infusion at this time. Patient states she is unsure why she was brought into the hospital as she denies recently having or currently experiencing any complaints including headache, lightheadedness, dizziness, chest pain, palpitations, shortness of breath, or experiencing any numbness/tingling/weakness in her extremities. Patient remains in A. fib with RVR at this time. General: non toxic, no distress, appears at stated age, normal weight Derm: no unusual rashes/lesions no unusual ecchymoses, warm, dry Head: atraumatic, normocephalic, symmetric Eyes: EOMI, no lid lag, anicteric sclera, pupils equal round reactive to light ENT: Nose and ears atraumatic, no thrush, no pharyngeal erythema Neck: No thyromegaly, no cervical lymphadenopathy, trachea midline, supple Mouth: no lip lesion, mucus membranes moist Cardiovascular: Irregularly irregular, no murmur, positive posterior tibial pulse bilateral, no edema, capillary refill less than 2 seconds Lungs: CTA bilateral, no rhonchi, no rales , no accessory muscle use Abdominal: soft, nontender to palpation, no guarding, no appreciable organomegaly, normal bowel sounds Ext: no gross muscle atrophy, muscle strength 5 out of 5 in all 4 extremities grossly, no contractures, Neuro: CN II-XI grossly intact, GCS 14. Other than confusion, no neuro deficits noted. Psych: Alert, oriented to person, place, time, but somewhat confused with other questions Assessment and plan of care: Atrial fibrillation with RVR -Cardizem infusion discontinued and patient started on amiodarone infusion at time of assessment. -Cardiology following -Continue telemetry monitoring -Continue anticoagulation with home Eliquis -Echocardiogram revealing EF between 50 and 55% Hypertension Monitor vital signs and continue daily medication regimen with losartan and metoprolol. Hyperlipidemia Continue daily medication regimen with atorvastatin. The patient is admitted with an anticipated greater than 2 midnight stay for evaluation of Afib with RVR CODE STATUS: Full Code DVT prophylaxis: Deepikaqucorey Discussed with: Patient and RN Anticipated discharge date: clinical course to determine Anticipated discharge place: Home Objective - Vital Signs Vital signs: Vital Signs Temp 97.7 F 11/18/21 22:15 Pulse 123 H 11/19/21 04:00 Resp 18 11/19/21 04:00 BP 120/75 11/19/21 04:00 Pulse Ox 100 11/19/21 04:00 Intake & Output 11/18/21 11/19/21 11/19/21 18:59 06:59 18:59 Intake Total 970 Balance 970 Weight 63.957 kg 63.5 kg Intake: Intake, IV Titration 485 Amount Diltiazem 125 mg In 485 Sodium Chloride 0.9% 100 ml @ 5 MG/HR 5 mls/hr IV .Q24H [facility] Rx#:[id number] Oral 485 Other: Voiding Method Toilet # Voids 1 - Labs CBC & Chem 7: 11/18/21 17:54 11/18/21 17:54 Labs: Abnormal Lab Results - Last 24 Hours (Table) 11/18/21 Range/Units 17:54 BUN 22 H (7-17) mg/dL Creatinine 1.07 H (0.52-1.04) mg/dL Glucose 108 H (74-99) mg/dL Total Bilirubin 1.5 H (0.2-1.3) mg/dL TSH 4.690 H (0.465-4.680) mIU/L <Estevan Reyes - Last Filed: 11/20/21 07:57> Subjective agree with note and plan Objective - Vital Signs Vital signs: Vital Signs Temp 98.1 F 11/19/21 20:00 Pulse 98 11/20/21 04:00 Resp 16 11/20/21 04:00 BP 120/81 11/20/21 04:00 Pulse Ox 96 11/20/21 04:00 Intake & Output 11/19/21 11/20/21 11/20/21 18:59 06:59 18:59 Intake Total 660 1203.894 Balance 660 1203.894 Intake: Intake, IV Titration 233.894 Amount Amiodarone 450 mg In 233.894 Dextrose 5% in Water 250 ml @ 0.5 MG/MIN 16.667 mls/hr IV .Q15H [facility] Rx#: [id number] Oral 660 970 Other: Voiding Method Toilet Toilet # Voids 2 1 - Labs CBC & Chem 7: 11/18/21 17:54 11/18/21 17:54
[2021-11-20] MEDS: AMIODARONE 450 MG in DEXTROSE 5% IN WATER 250 ML IV SCH ×2 (06:02)
[2021-11-20] MEDS: METOPROLOL SUCCINATE (ER) 25 MG TAB.ER.24H PO SCH (08:53)
[2021-11-20] MEDS: ESCITALOPRAM 10 MG TAB PO SCH (08:53)
[2021-11-20] MEDS: APIXABAN 2.5 MG TABLET PO SCH ×2 (08:53→20:51)
[2021-11-20] MEDS: LOSARTAN 25 MG TAB PO SCH (08:53)
--- NOTE | 2021-11-20 10:12 | P.PN ---
Subjective Progress Note Date: 11/20/21 Principal diagnosis: Persistent atrial fibrillation Patient is feeling better heart rate is well controlled denies chest pain difficulty in breathing or leg edema she is anxious to go home Echocardiogram shows normal LV function Objective - Vital Signs Vital signs: Vital Signs Temp 98.1 F 11/20/21 08:05 Pulse 80 11/20/21 08:05 Resp 16 11/20/21 08:05 BP 142/89 11/20/21 08:05 Pulse Ox 93 L 11/20/21 08:05 Intake & Output 11/19/21 11/20/21 11/20/21 18:59 06:59 18:59 Intake Total 660 1203.894 Balance 660 1203.894 Intake: Intake, IV Titration 233.894 Amount Amiodarone 450 mg In 233.894 Dextrose 5% in Water 250 ml @ 0.5 MG/MIN 16.667 mls/hr IV .Q15H [facility] Rx#: [id number] Oral 660 970 Other: Voiding Method Toilet Toilet # Voids 2 1 - Exam General: The patient is awake and alert, in no distress, and does not appear acutely ill. Skin: Skin is warm and dry and no rashes or lesions are noted. Eye: Pupils are equal, round and reactive to light, extra-ocular movements are intact; there is normal conjunctiva bilaterally. Ears, nose, mouth and throat: There are moist mucous membranes and no oral lesions. Neck: The neck is supple, there is no tenderness or JVD. Cardiovascular: Irregular No murmur, rub or gallop is appreciated. Respiratory: Lungs are clear to auscultation, respirations are non-labored, breath sounds are equal. Gastrointestinal: Soft, non-distended, non-tender abdomen without masses or organomegaly noted. There is no rebound or guarding present. Bowel sounds are unremarkable. Back: There is no tenderness to palpation in the midline. There is no obvious deformity. Musculoskeletal: Normal ROM, no tenderness, There is no pedal edema. There is no calf tenderness or swelling. Extremities: No edema. Vascular: Femoral pulse is normal. Posterior tibial pulses are normal .Dorsalis pedis is palpable. Neurological: CN II-XII intact. There are no obvious motor or sensory deficits. Speech is normal. Psychiatric: Cooperative, appropriate mood & affect, normal judgment. - Labs CBC & Chem 7: 11/18/21 17:54 11/18/21 17:54 Assessment and Plan Assessment: Persistent atrial fibrillation with poorly controlled ventricular rate Plan: Patient's heart rate is better controlled today I will switch his amiodarone to by mouth reviewed echo findings continue the anticoagulant stable for discharge from cardiac standpoint
[2021-11-20] MEDS: AMIODARONE 200 MG TAB PO SCH ×2 (10:43→20:51)
--- NOTE | 2021-11-20 13:37 | P.PN ---
<Juan C Finley - Last Filed: 11/20/21 13:32> Subjective Progress Note Date: 11/20/21 Hospital course: Patient is an 81-year-old female with a PMH of A. fib on Eliquis, hypertension, and hyperlipidemia who was sent in from her primary care physician's office due to A. fib with RVR. The history was supplemented by the patient's daughter at the bedside. The daughter reports that the patient has been more forgetful recently and they suspect that she may not be taking her medications as per usual. The patient was also partially confused during the interview and when asked, she reports that she does not take any medications. The patient lives by herself and up until now has been fully independent with all her ADLs. She was seen at her PMDs office earlier today for a routine evaluation where she was noted to be significantly tachycardic and was thereby sent to the ED. She denied any active complaints at the time of admission. EKG in the emergency room revealed A. fib with RVR with initial EKG showing a rate of 131 and subsequently 138. Chest x-ray revealed findings consistent with COPD. Laboratory evaluation was unremarkable with the exception of elevated bilirubin of 1.5 and TSH of 4.690 with free T4 of 1.22 and free T3 of 3.9. Covid PCR negative. Physical examination: Patient seen and fully evaluated at the bedside this morning. At time of assessment, patient remained on amiodarone infusion. She remains in A. fib with a controlled ventricular rate 60s to 90s. Cardiology plans to transition patient to oral amiodarone. Patient continues to deny having any headache, li ghtheadedness, dizziness, chest pain, palpitations, shortness of breath, or experiencing any numbness/tingling/weakness in her extremities. We will monitor how patient tolerates transition to oral amiodarone and plan for likely discharge in a.m. General: non toxic, no distress, appears at stated age, normal weight Derm: no unusual rashes/lesions no unusual ecchymoses, warm, dry Head: atraumatic, normocephalic, symmetric Eyes: EOMI, no lid lag, anicteric sclera, pupils equal round reactive to light ENT: Nose and ears atraumatic, no thrush, no pharyngeal erythema Neck: No thyromegaly, no cervical lymphadenopathy, trachea midline, supple Mouth: no lip lesion, mucus membranes moist Cardiovascular: Irregularly irregular, no murmur, positive posterior tibial pulse bilateral, no edema, capillary refill less than 2 seconds Lungs: CTA bilateral, no rhonchi, no rales , no accessory muscle use Abdominal: soft, nontender to palpation, no guarding, no appreciable organomegaly, normal bowel sounds Ext: no gross muscle atrophy, muscle strength 5 out of 5 in all 4 extremities grossly, no contractures, Neuro: CN II-XI grossly intact, GCS 14. Other than confusion, no neuro deficits noted. Psych: Alert, oriented to person, place, time, but somewhat confused with other questions Assessment and plan of care: Atrial fibrillation with RVR -Patient remains on amiodarone infusion at this time. Ventricular rate controlled. Cardiology placing order for oral amiodarone. We will monitor how patient tolerates transition and plan for likely discharge in a.m. -Cardiology following -Continue telemetry monitoring -Continue anticoagulation with home Eliquis -Echocardiogram revealing EF between 50 and 55% Hypertension Monitor vital signs and continue daily medication regimen with losartan and metoprolol. Hyperlipidemia Continue daily medication regimen with atorvastatin. The patient is admitted with an anticipated greater than 2 midnight stay for evaluation of Afib with RVR CODE STATUS: Full Code DVT prophylaxis: Eliquis Discussed with: Patient and RN Anticipated discharge date: Likely tomorrow morning Anticipated discharge place: Home Objective - Vital Signs Vital signs: Vital Signs Temp 98 F 11/20/21 12:17 Pulse 68 11/20/21 12:17 Resp 16 11/20/21 12:17 BP 119/69 11/20/21 12:17 Pulse Ox 94 L 11/20/21 12:17 Intake & Output 11/19/21 11/20/21 11/20/21 18:59 06:59 18:59 Intake Total 660 1203.894 180 Balance 660 1203.894 180 Weight 63 kg Intake: Intake, IV Titration 233.894 Amount Amiodarone 450 mg In 233.894 Dextrose 5% in Water 250 ml @ 0.5 MG/MIN 16.667 mls/hr IV .Q15H [facility] Rx#: [id number] Oral 660 970 180 Other: Voiding Method Toilet Toilet # Voids 2 1 1 - Labs CBC & Chem 7: 11/18/21 17:54 11/18/21 17:54 <Daija Mcnair - Last Filed: 11/20/21 18:41> Subjective Juan C Finley NP rendered care for this patient independently, reviewed the findings and plan as documented in the note above. I did not physically speak with or examine the patient on this date. Objective - Vital Signs Vital signs: Vital Signs Temp 98.4 F 11/20/21 15:44 Pulse 76 11/20/21 15:44 Resp 16 11/20/21 15:44 BP 126/80 11/20/21 15:44 Pulse Ox 95 11/20/21 15:44 Intake & Output 11/19/21 11/20/21 11/20/21 18:59 06:59 18:59 Intake Total 660 1203.894 360 Balance 660 1203.894 360 Weight 63 kg Intake: Intake, IV Titration 233.894 Amount Amiodarone 450 mg In 233.894 Dextrose 5% in Water 250 ml @ 0.5 MG/MIN 16.667 mls/hr IV .Q15H [facility] Rx#: [id number] Oral 660 970 360 Other: Voiding Method Toilet Toilet # Voids 2 1 1 # Bowel Movements 0 - Labs CBC & Chem 7: 11/18/21 17:54 11/18/21 17:54
[2021-11-20] MEDS: ATORVASTATIN 10 MG TAB PO SCH (16:57)
[2021-11-21 04:05] LABS: HCT 41.6 % (34.0-46.0); HGB 13.9 gm/dL (11.4-16.0); MCHC 33.5 g/dL (31.0-37.0); MCV 98.4 fL (80.0-100.0); Mean Platelet Volume 7.8; Platelet Count 251 k/uL (150-450); RBC 4.23 m/uL (3.80-5.40); RDW 12.8 % (11.5-15.5); WBC 7.7 k/uL (3.8-10.6)
[2021-11-21 04:16] LABS: Calcium 9.3 mg/dL (8.4-10.2); Magnesium 1.8 mg/dL (1.6-2.3); Potassium 4.6 mmol/L (3.5-5.1); Total Bilirubin 1.9 mg/dL (0.2-1.3)
[2021-11-21 05:58] VITALS: RESP 18
[2021-11-21] MEDS: METOPROLOL SUCCINATE (ER) 25 MG TAB.ER.24H PO SCH (08:14)
[2021-11-21] MEDS: AMIODARONE 200 MG TAB PO SCH (08:14)
[2021-11-21] MEDS: ESCITALOPRAM 10 MG TAB PO SCH (08:14)
[2021-11-21] MEDS: APIXABAN 2.5 MG TABLET PO SCH (08:14)
[2021-11-21] MEDS: LOSARTAN 25 MG TAB PO SCH (08:14)
[2021-11-21 09:40] VITALS: BP 115/81; PULSE 105; TEMP 98.3
--- NOTE | 2021-11-21 12:29 | P.DS ---
<Juan C Finley - Last Filed: 11/21/21 14:28> Providers Expected date of discharge: 11/21/21 Hospital Course: Discharge Diagnosis: Chronic persistent Atrial fibrillation with episode of RVR Hypertension Hyperlipidemia Hospital Course: Patient is a very pleasant 81-year-old female with a past medical history of chronic persistent atrial fibrillation on Eliquis, hypertension, and hyperlipidemia. She presented to the hospital on 11/18/21 after being sent by her primary care physician's office secondary to findings of atrial fibrillation with RVR. Upon arrival to the hospital, patient was asymptomatic and denied any complaints. EKG in the emergency room revealed A. fib with RVR with initial EKG showing a rate of 131 and subsequently 138. Chest x-ray revealed findings consistent with COPD. Laboratory evaluation was unremarkable with the exception of slightlyelevated bilirubin of 1.5 and TSH of 4.690 with free T4 of 1.22 and free T3 of 3.9. Covid PCR negative. Patient was admitted under our services for atrial fibrillation with RVR and cardiology was consulted. Initially patient was placed on Cardizem infusion and this was transitioned over to amiodarone infusion. Amiodarone infusion was able to control ventricular rate and patient was transitioned over to oral amiodarone at that time. Echocardiogram was completed revealing a preserved EF between 50 and 55%. Patient maintaining ventricular rate 70s to 110 and has been cleared by cardiology recommending follow-up in their office. Patient remains free from any complaints throughout her entire hospitalization. She is medically stable and is being discharged back home with family at this time. Patient instructed to to continue metoprolol and Eliquis and has been prescribed new medication amiodarone 200 mg twice daily. Patient to follow-up with PCP in 1-2 days and with cardiology in 1 week. Physical examination: General: non toxic, no distress, appears at stated age, normal weight Derm: no unusual rashes/lesions no unusual ecchymoses, warm, dry Head: atraumatic, normocephalic, symmetric Eyes: EOMI, no lid lag, anicteric sclera, pupils equal round reactive to light ENT: Nose and ears atraumatic, no thrush, no pharyngeal erythema Neck: No thyromegaly, no cervical lymphadenopathy, trachea midline, supple Mouth: no lip lesion, mucus membranes moist Cardiovascular: Irregularly irregular, no murmur, positive posterior tibial pulse bilateral, no edema, capillary refill less than 2 seconds Lungs: CTA bilateral, no rhonchi, no rales , no accessory muscle use Abdominal: soft, nontender to palpation, no guarding, no appreciable organomegaly, normal bowel sounds Ext: no gross muscle atrophy, muscle strength 5 out of 5 in all 4 extremities grossly, no contractures, Neuro: CN II-XI grossly intact, GCS 15. Other than confusion, no neuro deficits noted. Psych: Alert, oriented to person, place, time, and situation. A total of 45 minutes of time were spent preparing this complex discharge summary. Patient Condition at Discharge: Stable Plan - Discharge Summary Discharge Rx Participant: Yes New Discharge Prescriptions: New Amiodarone [Cordarone] 200 mg PO BID 30 Days #60 tab Continue Metoprolol Succinate (ER) [Toprol XL] 12.5 mg PO DAILY Atorvastatin [Lipitor] 10 mg PO W/SUPPER Apixaban [Eliquis] 2.5 mg PO BID Losartan Potassium [Cozaar] 25 mg PO BID Escitalopram [Lexapro] 10 mg PO DAILY Discharge Medication List Atorvastatin [Lipitor] 10 mg PO W/SUPPER 02/22/18 [History] Metoprolol Succinate (ER) [Toprol XL] 12.5 mg PO DAILY 02/22/18 [History] Apixaban [Eliquis] 2.5 mg PO BID 11/18/21 [History] Escitalopram [Lexapro] 10 mg PO DAILY 11/18/21 [History] Losartan Potassium [Cozaar] 25 mg PO BID 11/18/21 [History] Amiodarone [Cordarone] 200 mg PO BID 30 Days #60 tab 11/21/21 [Rx] Follow up Appointment(s)/Referral(s): Tejas Dawson MD [STAFF PHYSICIAN] - 1 Week Floyd Doyle [Primary Care Provider] - 1-2 days Patient Instructions/Handouts: A-fib (Atrial Fibrillation) (DC) Activity/Diet/Wound Care/Special Instructions: Activity: As tolerated. Take breaks as needed. Diet: Heart healthy and carb consistent diet. Avoid salts, or foods with hidden salts such as canned or boxed foods and frozen dinners. Extra salt makes your heart work harder and traps the fluid in your body for longer. Special Instructions: Take all of your medications as directed and remember to keep all of your doctor's appointments and follow-up as needed. Thank you for allowing us to participate in your care, it was truly a pleasure having you for our patient!!! Discharge Disposition: HOME SELF-CARE <Daija Mcnair - Last Filed: 11/21/21 19:44> Providers Date of admission: 11/18/21 19:13 Attending physician: Daija Mcnair DO Consults: 11/18/21 19:21 Consult Physician Routine Consulting Provider: Chris Brown Consult Reason/Comments: a fib w rvr Do you want consulting provider notified?: Yes Primary care physician: [facility] Course: Juan C Finley NP rendered care for this patient independently, reviewed the findings and plan as documented in the note above. I did not physically speak with or examine the patient on this date.
== END 2021-11-21 13:43 | disposition home or self-care (01) | DRG 310 ==
LOC: EC 17:16 → 3SCARD 19:13
PROVIDERS: ADMIT Internal Medicine; ATTEND Internal Medicine
DX: I48.19 Other persistent atrial fibrillation (principal); R00.0 Tachycardia, unspecified; I08.3 Combined rheumatic disorders of mitral, aortic and tricuspid valves; E78.5 Hyperlipidemia, unspecified; Z20.822 Contact with and (suspected) exposure to COVID-19; I10 Essential (primary) hypertension; I34.1 Nonrheumatic mitral (valve) prolapse; J44.9 Chronic obstructive pulmonary disease, unspecified; Z79.01 Long term (current) use of anticoagulants; Z79.899 Other long term (current) drug therapy; Z88.2 Allergy status to sulfonamides
CPT/HCPCS: 36415; 71046; 80053; 83735; 84439; 84443; 84481; 84484; 85025; 85027; 85610; 85730; 87635; 93005; 93306; 96365; 99291

== ENCOUNTER 2022-01-04 10:42 | Day surgery (SDC) | payer MEDICARE ==
[2022-01-03 09:36] VITALS: BMI 24.7
[~2022-01-04 10:42] MED LIST changes: -ALPRAZolam 0.25 MG TAB PO PRN; -ALPRAZolam 0.5 MG TAB PO PRN; -ASPIRIN 325 MG TAB PO STA; -ATORVASTATIN 80 MG TAB PO STA; +LACTATED RINGERS 1,000 ML IV SCH; -NITROGLYCERIN SL TABS 0.4 MG TAB SUBLINGUAL PRN; +SODIUM CHLORIDE 0.9% 1,000 ML IV SCH; -SODIUM CHLORIDE 0.9% 1,000 ML in EMPTY BAG 1 BAG IV ONE
[2022-01-04 11:24] VITALS: TEMP 98
[2022-01-04] MEDS ORDERED: PROPOFOL 10 MG/ML 20 ML VIAL IV ONE (12:05)
--- NOTE | 2022-01-04 12:23 | P.PCN ---
Date of Procedure: 01/04/22 Operative Findings: CARDIOVERSION Performing physician Chris Brown Procedure performed Successful cardioversion of atrial fibrillation into normal sinus mechanism using 100 J and first attempt Indication Persistent symptomatic atrial fibrillation Complication None Level of sedation The procedure was performed using propofol with STAFFING CLERK in the recovery Procedure description After obtaining an informed consent the patient was brought to the recovery room. The pulse oximetry and heart rate monitors were attached the patient. I short that the patient was taking oral anticoagulation before sedation induction. After that and after sedation induction the patient cardioverted to normal sinus mechanism using 100 J and first attempt Conclusion Successful cardioversion of atrial fibrillation
[2022-01-04 12:47] VITALS: RESP 18
[2022-01-04 13:39] VITALS: BP 108/56; PULSE 58
== END 2022-01-04 13:52 | disposition home or self-care (01) ==
LOC: CATHCVL 10:42
PROVIDERS: ATTEND Internal Medicine Interventional Cardiology
DX: I48.19 Other persistent atrial fibrillation (principal); I38 Endocarditis, valve unspecified; Z91.14 Patient's other noncompliance with medication regimen; Z20.822 Contact with and (suspected) exposure to COVID-19; Z79.01 Long term (current) use of anticoagulants; Z79.899 Other long term (current) drug therapy; Z88.2 Allergy status to sulfonamides
CPT/HCPCS: 93005; 92960; 87635; J2704

== ENCOUNTER → 2023-07-14 | Outpatient (CLI) | payer MEDICARE ==
--- NOTE | 2023-07-14 18:59 | US ---
EXAMINATION TYPE: US kidneys/renal and bladder DATE OF EXAM: 07/14/2023 COMPARISON: NONE CLINICAL INDICATION: Female, 83 years old with history of N18.30 chronic kidney disease stage 3; EXAM MEASUREMENTS: Right Kidney: 9.2 x 4.1 x 4.2 cm Left Kidney: 9.4 x 4.5 x 3.6 cm Right Kidney: No hydronephrosis or masses seen Left Kidney: No hydronephrosis or masses seen Bladder: wnl Bilateral Jets seen: yes There is no evidence for hydronephrosis at this point in time. No nephrolithiasis is seen. No caroline s are identified. The urinary bladder is anechoic. Bilateral ureteral jets are seen. IMPRESSION: Mildly increased echogenicity renal cortex. Correlate for medical renal disease.
== END | disposition home or self-care (01) ==
LOC: RADUSWWP 15:35
PROVIDERS: ATTEND Family Medicine
DX: N18.30 Chronic kidney disease, stage 3 unspecified (principal)
CPT/HCPCS: 76770